=== PATIENT | female | born 1965 | race Caucasian/White ===

== ENCOUNTER → 2020-12-19 15:31 | Outpatient (CLI) | payer OTHER, MEDICARE, SELFPAY ==
[2020-12-19 16:04] LABS: Basophils % 0.6 % (0.1-2.0); Eosinophils # 0.1 K/mm3 (0.0-0.4); Eosinophils % 2.4 % (0.1-12.0); Hematocrit 38.1 % (37.0-47.0); Hemoglobin 12.5 g/dL (12.2-16.2); Lymphocytes # 1.5 K/mm3 (0.7-4.5); Mean Corpuscular HGB Conc 32.9 g/dL (31.8-35.4); Mean Corpuscular Hemoglobin 32.6 pg (27.0-31.2); Mean Corpuscular Volume 99.2 fl (81-99); Mean Platelet Volume 7.7 fl (7.4-10.4); Monocytes # 0.5 K/mm3 (0.1-1.0); Monocytes % 11.2 % (1.7-9.3); Neutrophils # 2.4 K/mm3 (1.8-7.8); Neutrophils % 52.9 % (37.0-80.0); Platelet Count 263 K/mm3 (142-424); Red Blood Count 3.84 M/mm3 (4.20-5.40); Red Cell Distribution Width 15.8 % (11.5-17.5); White Blood Count 4.5 K/mm3 (4.8-10.8)
[2020-12-19 16:24] LABS: Alanine Aminotransferase 19 U/L (12-78); Albumin/Globulin Ratio 1.5 (1.1-1.8); Alkaline Phosphatase 76 U/L (38-126); Anion Gap 9.2 mEq/L (5-15); Aspartate Amino Transferase 27 U/L (14-36); Bilirubin,Total 0.5 mg/dl (0.2-1.3); Blood Urea Nitrogen 8 mg/dl (7-17); Carbon Dioxide 28 mmol/L (22.0-30.0); Chloride 104 mmol/L (98-107); Estimated Glomerular Filt Rate 128 ml/min (>60); GFR (African American) 154 ML/MIN (>60); Globulin 2.7 g/dL (1.3-3.2); Glucose 100 mg/dl (74-100); Potassium 4.2 mmoL/L (3.5-5.1); Sodium 137 mmol/L (136-145); Total Protein,Serum 6.7 g/dl (6.3-8.2)
== END ==
DX: C18.9 Malignant neoplasm of colon, unspecified (principal)
CPT/HCPCS: 36415; 80053; 85025

== ENCOUNTER → 2021-01-02 17:39 | Outpatient (CLI) | payer OTHER, MEDICARE, SELFPAY ==
[2021-01-02 18:15] LABS: Basophils % 0.5 % (0.1-2.0); Eosinophils # 0.1 K/mm3 (0.0-0.4); Eosinophils % 2.3 % (0.1-12.0); Hematocrit 36.6 % (37.0-47.0); Hemoglobin 12.4 g/dL (12.2-16.2); Lymphocytes # 1.2 K/mm3 (0.7-4.5); Mean Corpuscular Hemoglobin 32.6 pg (27.0-31.2); Mean Platelet Volume 8.1 fl (7.4-10.4); Monocytes # 0.2 K/mm3 (0.1-1.0); Monocytes % 5.6 % (1.7-9.3); Neutrophils # 1.8 K/mm3 (1.8-7.8); Neutrophils % 55.6 % (37.0-80.0); Platelet Count 193 K/mm3 (142-424); Red Blood Count 3.82 M/mm3 (4.20-5.40); Red Cell Distribution Width 15.4 % (11.5-17.5); White Blood Count 3.2 K/mm3 (4.8-10.8)
[2021-01-02 18:47] LABS: Hemoglobin A1C 5.3 % (4.0-6.0)
[2021-01-02 19:40] LABS: Alanine Aminotransferase 25 U/L (12-78); Albumin Level 4.3 g/dl (3.5-5.0); Albumin/Globulin Ratio 1.6 (1.1-1.8); Alkaline Phosphatase 80 U/L (38-126); Anion Gap 10.6 mEq/L (5-15); Aspartate Amino Transferase 33 U/L (14-36); Bilirubin,Total 0.7 mg/dl (0.2-1.3); Blood Urea Nitrogen 11 mg/dl (7-17); Carbon Dioxide 26 mmol/L (22.0-30.0); Chloride 104 mmol/L (98-107); Estimated Glomerular Filt Rate 128 ml/min (>60); GFR (African American) 154 ML/MIN (>60); Globulin 2.7 g/dL (1.3-3.2); Potassium 4.6 mmoL/L (3.5-5.1); Sodium 136 mmol/L (136-145)
[2021-01-02 20:09] LABS: Thyroid Stimulating Hormone 0.88 uIU/mL (0.465-4.68)
[2021-01-02 20:13] LABS: Calcium 9.3 mg/dl (8.4-10.2); Glucose 91 mg/dl (74-100)
[2021-01-02 20:27] LABS: Vitamin B12 406 pg/mL (239-931)
== END ==
PROVIDERS: Visit Provider Internal Medicine Adolescent Medicine
DX: G62.0 Drug-induced polyneuropathy (principal); T45.1X5A Adverse effect of antineoplastic and immunosuppressive drugs, initial encounter
CPT/HCPCS: 36415; 80053; 82607; 83036; 84443; 85025

== ENCOUNTER 2021-04-19 14:59 | Emergency (ER) | payer MEDICARE, SELFPAY ==
--- NOTE | 2021-04-19 14:50 | ECG_ITS ---
APPROVED REPORT Exam: Resting ECG HR:87 bpm ECG Measurements Heart Rate 87 AXES WI 142 P 38 QRSd 56 QRS 16 QT 346 T 23 QTc 416 Conclusion Normal sinus rhythm Low voltage QRS Cannot rule out Anterior infarct, age undetermined Abnormal ECG Electronically signed by : Liban Petit MD 04/21/2021 10:55:39
[2021-04-19 14:59] VITALS: BP 138/92; PULSE 89; RESP 18; TEMP 36.8; O2SAT 98; BMI 43.9
--- NOTE | 2021-04-19 15:01 | HMH.EDEXTP ---
ED Disposition Clinical Impression: DVT of upper extremity (deep vein thrombosis) Qualifiers: Affected thrombotic vein of extremity: brachial Chronicity: acute Laterality: right Qualified Code(s): I82.621 - Acute embolism and thrombosis of deep veins of right upper extremity Disposition: Home, Self-Care Condition on Discharge: Fair Additional Instructions: You may take [id number] acetaminophen for your pain. Please follow-up with your primary care doctor by Saturday if your symptoms do not improve. Return to the emergency department if you feel worse or short of breath or develop persistent chest pain. Prescriptions: Ketorolac Tromethamine [Toradol 10mg tablet] 10 mg PO Q6HP PRN #8 tab MDD 40mg/day PRN Reason: Arm pain Transmission Status: Sent to [facility] Apixaban [Eliquis 5mg tab] 5 mg PO BID #60 tab Transmission Status: Sent to [facility] Referrals: Liban Petit MD [Primary Care Provider] - - Critical Care Critical Care Time: No Attestation: On , the high probability of a clinically significant, sudden or life threatening deterioration of the following system(s) required my full and direct attention, intervention and personal management. The time I documented below is in addition to time spent performing reported procedures but includes the following listed in this critical care notation. Medical Decision Making - Medical Records Medical records reviewed: Yes: I reviewed the patient's medical records. - Nilo Inquiry Pt receiving controlled substance: No Vital Signs: 04/19/21 14:59 04/19/21 15:30 04/19/21 16:00 Temperature 98.3 F Temperature Source Oral Pulse Rate 81 86 Pulse Rate [Left Radial] 89 Respiratory Rate 18 Blood Pressure [Right Arm] 138/92 H Blood Pressure Mean [Right Arm] 107 Blood Pressure Source [Right Arm] Automatic Cuff Blood Pressure Position [Right Arm] Sitting 02 Sat by Pulse Oximetry 98 96 98 Oxygen Delivery Method Room Air - Lab Data Lab Results 04/19/21 15:00: WBC 6.2, RBC 4.16 L, Hgb 13.3, Hct 40.6, MCV 97.7, MCH 32.0 H, MCHC 32.7, RDW 13.9, Plt Count 225, MPV 8.2, Neut % (Auto) 66.3, Lymph % (Auto) 23.0, [place] % (Auto) 7.1, Eos % (Auto) 2.6, Baso % (Auto) 1.0, Neut # (Auto) 4.1, Lymph # (Auto) 1.4, [place] # (Auto) 0.4, Eos # (Auto) 0.2, Baso # (Auto) 0.1 04/19/21 15:00: Sodium 138, Potassium 4.5, Chloride 102, Carbon Dioxide 27, Anion Gap 13.5, BUN 14, Creatinine 0.60, Estimated Creat Clear 87, Estimated GFR 103, Est GFR ( Amer) 125, Glucose 102 H, Calcium 9.8, Total Bilirubin 0.2, AST 30, ALT 21, Alkaline Phosphatase 84, Total Protein 7.8, Albumin 4.4, Globulin 3.4 H, Albumin/Globulin Ratio 1.3 04/19/21 15:05: PT 10.8, INR 0.91, APTT 23.2 Result diagrams: 04/19/21 15:00 04/19/21 15:00 Orders (Tests/Meds): ED MEDICATIONS Generic Name Dose Route Start Last Admin Trade Name Freq PRN Reason Stop Dose Admin Apixaban 5 mg 04/19/21 21:00 Apixaban 5mg Tablet PO 05/19/21 20:59 BID DEB Discontinued Medications Generic Name Dose Route Start Last Admin Trade Name Freq PRN Reason Stop Dose Admin Ketorolac Tromethamine 30 mg 04/19/21 15:06 04/19/21 15:10 Ketorolac 30mg/Ml Vial IV 04/19/21 15:07 30 mg ONCE ONE Administration - ECG Data Tracing #1 I reviewed this ECG and interpreted as documented below: The patient's EKG was done at 1451. It shows a normal sinus rhythm with a rate of 87 bpm artifact present there are Q waves in lead III. Otherwise the EKG is unremarkable without any evidence of ischemia or dysrhythmia. Normal Sinus Rhythm: Yes Medical Decision Narrative: The patient presents to the emergency department complaining of right upper extremity pain since this morning. Her physical exam and history prompted me to obtain a venous Doppler study to rule out DVT. The appliance repair technician just informed me that the patient does have a clot in the brachial vein. It is c
--- NOTE | 2021-04-19 15:06 | CA_ITS ---
APPROVED REPORT Right Upper Extremity Venous Study for DVT. Operating Room Tech: DEEPA Beyer Upper Extremity Pain: Right Patient reports pain that began last night 04/18/21. Patient has a port on the right for Colon Cancer. Vein Imaging IJV (R): Normal phasic flow is seen. Normal flow, augmentation and compression is seen. No evidence of Deep Vein Thrombosis. No abnormalities are demonstrated. SCV (R): Normal phasic flow is seen. Normal flow, augmentation and compression is seen. No evidence of Deep Vein Thrombosis. No abnormalities are demonstrated. Axillary (R): Normal phasic flow is seen. Normal flow, augmentation and compression is seen. No evidence of Deep Vein Thrombosis. No abnormalities are demonstrated. Brachial (R): Thrombus Basilic (R): Normal phasic flow is seen. Normal flow, augmentation and compression is seen. No evidence of Deep Vein Thrombosis. No abnormalities are demonstrated. Cephalic (R): Normal phasic flow is seen. Normal flow, augmentation and compression is seen. No evidence of Deep Vein Thrombosis. No abnormalities are demonstrated. Radial (R): Normal phasic flow is seen. Normal flow, augmentation and compression is seen. No evidence of Deep Vein Thrombosis. No abnormalities are demonstrated. Ulnar (R): Normal phasic flow is seen. Normal flow, augmentation and compression is seen. No evidence of Deep Vein Thrombosis. No abnormalities are demonstrated. Findings No evidence of intraluminal venous thrombosis Conclusion No evidence of intraluminal venous thrombosis Critical Notification Physician Notified Date: 04/19/2021 Time: 15:57 Physician Name: Destiny Electronically signed by : Facundo Dejesus MD 04/21/2021 16:53:38
[2021-04-19 15:29] LABS: Activated Partial Thrombo Time 23.2 seconds (22.8-30.6); Prothrombin Time 10.8 seconds (10.1-12.5)
[2021-04-19 15:30] VITALS: PULSE 81; O2SAT 96
[2021-04-19 15:30] LABS: INR 0.91 (0.9-1.1)
[2021-04-19 15:50] LABS: Chloride 102 mmol/L (98-107); Potassium 4.5 mmoL/L (3.5-5.1); Sodium 138 mmol/L (136-145)
[2021-04-19 15:53] LABS: Alanine Aminotransferase 21 U/L (12-78); Albumin Level 4.4 g/dl (3.5-5.0); Albumin/Globulin Ratio 1.3 (1.1-1.8); Alkaline Phosphatase 84 U/L (38-126); Anion Gap 13.5 mEq/L (5-15); Aspartate Amino Transferase 30 U/L (14-36); Bilirubin,Total 0.2 mg/dl (0.2-1.3); Blood Urea Nitrogen 14 mg/dl (7-17); Carbon Dioxide 27 mmol/L (22.0-30.0); Creatinine Clearance Estimated 87 mL/min (50-200); Estimated Glomerular Filt Rate 103 ml/min (>60); GFR (African American) 125 ML/MIN (>60); Globulin 3.4 g/dL (1.3-3.2); Total Protein,Serum 7.8 g/dl (6.3-8.2)
[2021-04-19 15:54] LABS: Basophils # 0.1 K/mm3 (0-0.2); Calcium 9.8 mg/dl (8.4-10.2); Eosinophils # 0.2 K/mm3 (0.0-0.4); Eosinophils % 2.6 % (0.1-12.0); Glucose 102 mg/dl (74-100); Hematocrit 40.6 % (37.0-47.0); Hemoglobin 13.3 g/dL (12.2-16.2); Lymphocytes # 1.4 K/mm3 (0.7-4.5); Mean Corpuscular HGB Conc 32.7 g/dL (31.8-35.4); Mean Corpuscular Volume 97.7 fl (81-99); Mean Platelet Volume 8.2 fl (7.4-10.4); Monocytes # 0.4 K/mm3 (0.1-1.0); Monocytes % 7.1 % (1.7-9.3); Neutrophils # 4.1 K/mm3 (1.8-7.8); Neutrophils % 66.3 % (37.0-80.0); Platelet Count 225 K/mm3 (142-424); Red Blood Count 4.16 M/mm3 (4.20-5.40); Red Cell Distribution Width 13.9 % (11.5-17.5); White Blood Count 6.2 K/mm3 (4.8-10.8)
[2021-04-19 16:00] VITALS: PULSE 86; O2SAT 98
[2021-04-19 16:12] VITALS: BP 142/82; PULSE 80; O2SAT 97
[2021-04-19 16:31] VITALS: BP 147/84; PULSE 80; O2SAT 97
[2021-04-19 16:52] VITALS: BP 147/84; PULSE 80; RESP 18; TEMP 36.8; O2SAT 97
== END 2021-04-19 16:59 | disposition home or self-care (01) ==
PROVIDERS: Emergency Provider Emergency Medicine; PCP Internal Medicine Adolescent Medicine
DX: I82.621 Acute embolism and thrombosis of deep veins of right upper extremity (principal); Z85.038 Personal history of other malignant neoplasm of large intestine; Z88.1 Allergy status to other antibiotic agents; Z88.2 Allergy status to sulfonamides
CPT/HCPCS: 80053; 85025; 85610; 85730; 93005; 93971; 96374; 99282

== ENCOUNTER 2021-06-03 11:56 | Emergency (ER) | payer MEDICARE, SELFPAY ==
[2021-06-03 11:58] VITALS: BP 143/83; PULSE 99; RESP 16; TEMP 36.9; O2SAT 97; BMI 44.2
--- NOTE | 2021-06-03 12:22 | HMH.EDGENADL ---
ED Disposition Clinical Impression: Right shoulder pain Qualifiers: Chronicity: acute Qualified Code(s): M25.511 - Pain in right shoulder Disposition: Home, Self-Care Condition on Discharge: Fair Additional Instructions: [place] as needed for pain. Follow-up with your primary care provider on Saturday for further care. Additional instructions for CONTROLLED SUBSTANCES: You have been prescribed a medication that is a controlled substance. Controlled substances include pain medications known as opiates and sedative nerve medications known as benzodiazepines. Tramadol, fioricet, and gabapentin are also controlled substances. Some common opiates include: Codeine (such as Tylenol #3) Hydrocodone (Vicodin, Lortab, Lorcet, [place]) Oxycodone (Percocet, Percodan, Oxycodone, Oxy IR) Some common benzodiazepines include: Diazepam (Valium) Lorazepam (Ativan) Alprazolam (Xanax) Clonazepam (Klonopin) Oxazepam (Serax) All of these controlled substances are highly addictive and frequently abused. Misuse can and frequently does lead to addiction as well as overdose and . Medication should be stored in a locked cabinet or other secure storage unit. Do not store the medication in a motor vehicle. Short term supplies, 3 days or less, are prescribed because of the highly addictive nature of the medication. Any of the controlled substance medication NOT taken should be disposed of properly and NOT SAVED. The recommended method of disposing of unused medications is: Place the medicines in a sealable plastic bag. If the medicine is a solid, crush it or add water to dissolve it. Add something undesirable (cat litter, coffee grounds, etc.) Dispose of sealed bag in household trash Do not flush or pour unused medicines down a sink or drain. Controlled substances should not be shared, given away or sold. Because of the addictive nature and frequent abuse, these medications are sometimes stolen. These medications should be kept in a safe place where they cannot be stolen. Do not keep them in your car or purse. Lost or stolen prescriptions for controlled substances WILL NOT BE REFILLED in this emergency department, regardless of whether a police report was filed. Prescriptions: Hydrocod/Acet 5/325 mg [[place] 5/325mg tablet] 1 tab PO Q6HP PRN #10 tab PRN Reason: Pain Transmission Status: Sent to [facility] #[id number] Referrals: Liban Petit MD [Primary Care Provider] - - Critical Care Critical Care Time: No Attestation: On , the high probability of a clinically significant, sudden or life threatening deterioration of the following system(s) required my full and direct attention, intervention and personal management. The time I documented below is in addition to time spent performing reported procedures but includes the following listed in this critical care notation. Medical Decision Making - Medical Records Medical records reviewed: Yes: I reviewed the patient's medical records. MR Comment: Reviewed prior emergency department note and Doppler result from 04/21/21, see doppler report below - Nilo Inquiry Pt receiving controlled substance: Yes Nilo was queried for this patient: Yes Risks and benefits of using a controlled substance: were discussed with pt by me Vital Signs: 06/03/21 11:58 06/03/21 15:00 Temperature 98.4 F Temperature Source Oral Pulse Rate 90 Pulse Rate [Left Radial] 99 H Respiratory Rate 16 24 Blood Pressure 139/85 Blood Pressure [Left Arm] 143/83 H Blood Pressure Mean [Left Arm] 103 Blood Pressure Source [Left Arm] Automatic Cuff Blood Pressure Position [Left Arm] Sitting 02 Sat by Pulse Oximetry 97 100 Oxygen Delivery Method Room Air - Lab Data Lab Results 06/03/21 12:29: WBC 4.7 L, RBC 4.21, Hgb 12.9, Hct 41.4, MCV 98.2, MCH 30.6, MCHC 31.2 L, RDW 13.4, Plt Count 233, MPV 7.9, Neut % (Auto) 67.5, Lymph % (Auto) 20.8, [place] % (Auto) 6.7, Eos % (Auto) 4.1,
--- NOTE | 2021-06-03 12:32 | CA_ITS ---
APPROVED REPORT Right Upper Extremity Venous Study for DVT. Video And Sound Recorder: [address] Indications Upper Extremity Pain: Right Patient had a previous DVT of the right arm 2 months ago and is still currently taking Eloquis Risk Factors Prior Phlebitis/DVT Vein Imaging IJV (R): Normal phasic flow is seen. Normal flow, augmentation and compression is seen. No evidence of Deep Vein Thrombosis. No abnormalities are demonstrated. SCV (R): Normal phasic flow is seen. Normal flow, augmentation and compression is seen. No evidence of Deep Vein Thrombosis. No abno, Phasicrmalities are demonstrated., Axillary (R): Normal phasic flow is seen. Normal flow, augmentation and compression is seen. No evidence of Deep Vein Thrombosis. No abnormalities are demonstrated. Brachial (R): Normal phasic flow is seen. Normal flow, augmentation and compression is seen. No evidence of Deep Vein Thrombosis. No abnormalities are demonstrated. Basilic (R): Normal phasic flow is seen. Normal flow, augmentation and compression is seen. No evidence of Deep Vein Thrombosis. No abnormalities are demonstrated. Cephalic (R): Normal phasic flow is seen. Normal flow, augmentation and compression is seen. No evidence of Deep Vein Thrombosis. No abnormalities are demonstrated. Radial (R): Normal phasic flow is seen. Normal flow, augmentation and compression is seen. No evidence of Deep Vein Thrombosis. No abnormalities are demonstrated. Ulnar (R): Normal phasic flow is seen. Normal flow, augmentation and compression is seen. No evidence of Deep Vein Thrombosis. No abnormalities are demonstrated. Findings Study suggests no evidence of DVT or SVT of the right upper extremity. Conclusion Study suggests no evidence of DVT or SVT of the right upper extremity. Critical Notification Critical Value: No Physician Notified Date: 06/03/2021 Time: 14:34 Physician Name: ER nurse Electronically signed by : Wendie Griggs MD 06/06/2021 15:27:05
--- NOTE | 2021-06-03 12:32 | XR_ITS ---
PROCEDURE INFORMATION: Exam: XR Right Shoulder Exam date and time: 06/03/2021 12:32 PM Age: 55 years old Clinical indication: Pain; Shoulder; Right; Additional info: Pain right shoulder pain, some pain in pec-- patient has colon and rectal cancer and a port -- she had previous blood clot and is currently on blood thinner TECHNIQUE: Imaging protocol: XR Right shoulder. Views: 2 or more views. COMPARISON: CA VENOUS DOPPLER UE RT 04/19/2021 3:18 PM FINDINGS: Tubes, catheters and devices: MediPort terminates in the superior vena cava Bones/joints: Mild Degenerative changes in the acromioclavicular joint and glenohumeral joint. There is no evidence of acute fracture.There is no evidence of malalignment or dislocation. Soft tissues: Normal. IMPRESSION: There is no evidence of acute fracture.There is no evidence of malalignment or dislocation.
--- NOTE | 2021-06-03 12:33 | XR_ITS ---
PROCEDURE INFORMATION: Exam: XR Chest Exam date and time: 06/03/2021 12:33 PM Age: 55 years old Clinical indication: Pain; Chest pressure; Additional info: Right shoulder pain, some pain in pec-- patient has colon and rectal cancer and a port -- she had previous blood clot and is currently on blood thinner TECHNIQUE: Imaging protocol: XR of the chest. Views: 2 views. COMPARISON: No relevant prior studies available. FINDINGS: Tubes, catheters and devices: MediPort terminates in the superior vena cava Lungs: 3.7 cm mass in the left lung base and projected over the spine on the lateral. This may represent metastatic disease. Consider chest CT Pleural spaces: Unremarkable. No pleural effusion. No pneumothorax. Heart/Mediastinum: Unremarkable. No cardiomegaly. Bones/joints: Unremarkable. IMPRESSION: 3.7 cm mass in the left lung base and projected over the spine on the lateral. This may represent metastatic disease. Consider chest CT
--- NOTE | 2021-06-03 12:36 | ECG_ITS ---
APPROVED REPORT Exam: Resting ECG HR:87 bpm ECG Measurements Heart Rate [address] 148 P 53 QRSd 74 QRS 28 QT 356 T 45 QTc 428 Conclusion Normal sinus rhythm Low voltage QRS Borderline ECG Electronically signed by : Liban Petit MD 06/04/2021 08:47:07
[2021-06-03 12:40] LABS: Basophils % 0.9 % (0.1-2.0); Eosinophils # 0.2 K/mm3 (0.0-0.4); Eosinophils % 4.1 % (0.1-12.0); Hematocrit 41.4 % (37.0-47.0); Hemoglobin 12.9 g/dL (12.2-16.2); Lymphocytes % 20.8 % (10-50); Mean Corpuscular HGB Conc 31.2 g/dL (31.8-35.4); Mean Corpuscular Hemoglobin 30.6 pg (27.0-31.2); Mean Corpuscular Volume 98.2 fl (81-99); Mean Platelet Volume 7.9 fl (7.4-10.4); Monocytes # 0.3 K/mm3 (0.1-1.0); Monocytes % 6.7 % (1.7-9.3); Neutrophils # 3.2 K/mm3 (1.8-7.8); Neutrophils % 67.5 % (37.0-80.0); Platelet Count 233 K/mm3 (142-424); Red Blood Count 4.21 M/mm3 (4.20-5.40); Red Cell Distribution Width 13.4 % (11.5-17.5); White Blood Count 4.7 K/mm3 (4.8-10.8)
[2021-06-03 12:45] LABS: Chloride 104 mmol/L (98-107); Potassium 4.4 mmoL/L (3.5-5.1); Sodium 139 mmol/L (136-145)
[2021-06-03 12:48] LABS: Blood Urea Nitrogen 9 mg/dl (7-17); Creatinine Clearance Estimated 104 mL/min (50-200); Estimated Glomerular Filt Rate 128 ml/min (>60); GFR (African American) 154 ML/MIN (>60)
[2021-06-03 12:49] LABS: Anion Gap 13.4 mEq/L (5-15); Calcium 9.5 mg/dl (8.4-10.2); Carbon Dioxide 26 mmol/L (22.0-30.0); Glucose 125 mg/dl (74-100)
[2021-06-03 13:02] LABS: Troponin I < 0.01 ng/ml (0.00-0.034)
[2021-06-03 15:00] VITALS: BP 139/85; PULSE 90; RESP 24; O2SAT 100
[2021-06-03 15:28] VITALS: BP 142/86; PULSE 81; O2SAT 97
[2021-06-03 15:30] VITALS: BP 139/81; PULSE 84; O2SAT 98
--- NOTE | 2021-06-03 15:35 | PC.NURSE ---
Debo from ultrasound called. Ultrasound was negative.
[2021-06-03 16:00] VITALS: BP 136/83; PULSE 81; RESP 17; O2SAT 95
[2021-06-03 16:10] VITALS: BP 133/88; PULSE 89; RESP 18; TEMP 36.6; O2SAT 98
== END 2021-06-03 16:12 | disposition home or self-care (01) ==
PROVIDERS: Emergency Provider Emergency Medicine; PCP Internal Medicine Adolescent Medicine
DX: M25.511 Pain in right shoulder (principal); Z86.72 Personal history of thrombophlebitis; Z79.01 Long term (current) use of anticoagulants
CPT/HCPCS: 71046; 73030; 80048; 84484; 85025; 93005; 93971; 99283

== ENCOUNTER 2021-07-07 22:27 | Emergency (ER) | payer MEDICARE, SELFPAY ==
[2021-07-07 22:28] VITALS: BP 146/100; PULSE 95; RESP 18; TEMP 36.8; O2SAT 97; BMI 46.0
[2021-07-07 23:07] LABS: Basophils # 0.1 K/mm3 (0-0.2); Eosinophils # 0.2 K/mm3 (0.0-0.4); Eosinophils % 3.4 % (0.1-12.0); Hematocrit 37.6 % (37.0-47.0); Hemoglobin 12.8 g/dL (12.2-16.2); Mean Corpuscular HGB Conc 34.1 g/dL (31.8-35.4); Mean Corpuscular Hemoglobin 31.3 pg (27.0-31.2); Mean Corpuscular Volume 91.6 fl (81-99); Mean Platelet Volume 7.8 fl (7.4-10.4); Monocytes # 0.4 K/mm3 (0.1-1.0); Monocytes % 7.9 % (1.7-9.3); Neutrophils # 3.6 K/mm3 (1.8-7.8); Neutrophils % 68.7 % (37.0-80.0); Platelet Count 208 K/mm3 (142-424); Red Cell Distribution Width 13.4 % (11.5-17.5); White Blood Count 5.2 K/mm3 (4.8-10.8)
--- NOTE | 2021-07-07 23:12 | HMH.EDGENADL ---
ED Disposition Clinical Impression: Superficial venous thrombosis of right arm Disposition: Home, Self-Care Condition on Discharge: Good Instructions: DI for Superficial Thrombophlebitis Additional Instructions: call pcp in am and will do doppler in am Referrals: Liban Petit MD [Primary Care Provider] - - Critical Care Critical Care Time: No Attestation: On 07/07/21, the high probability of a clinically significant, sudden or life threatening deterioration of the following system(s) required my full and direct attention, intervention and personal management. The time I documented below is in addition to time spent performing reported procedures but includes the following listed in this critical care notation. Medical Decision Making - Medical Records Medical records reviewed: Yes: I reviewed the patient's medical records. - Nilo Inquiry Pt receiving controlled substance: No Vital Signs: 07/07/21 22:28 07/07/21 23:37 Temperature 98.2 F 98.3 F Temperature Source Oral Oral Pulse Rate 65 Pulse Rate [Left] 95 H Respiratory Rate 18 18 Blood Pressure 155/90 H Blood Pressure [Right Arm] 146/100 H Blood Pressure Mean [Right Arm] 115 02 Sat by Pulse Oximetry 97 Oxygen Delivery Method Room Air - Lab Data Lab results reviewed: Yes: I reviewed the patient's lab results. Lab Results 07/07/21 23:00: WBC 5.2, RBC 4.10 L, Hgb 12.8, Hct 37.6, MCV 91.6, MCH 31.3 H, MCHC 34.1, RDW 13.4, Plt Count 208, MPV 7.8, Neut % (Auto) 68.7, Lymph % (Auto) 19.0, [place] % (Auto) 7.9, Eos % (Auto) 3.4, Baso % (Auto) 1.0, Neut # (Auto) 3.6, Lymph # (Auto) 1.0, [place] # (Auto) 0.4, Eos # (Auto) 0.2, Baso # (Auto) 0.1, ESR 57 H 07/07/21 23:00: Sodium 138, Potassium 4.2, Chloride 104, Carbon Dioxide 28, Anion Gap 10.2, BUN 12, Creatinine 0.60, Estimated Creat Clear 87, Estimated GFR 103, Est GFR ( Amer) 125, Glucose 135 H, Calcium 9.0, Total Bilirubin 0.3, AST 25, ALT 12, Alkaline Phosphatase 84, C-Reactive Protein 7.4 H, Total Protein 6.9, Albumin 4.1, Globulin 2.8, Albumin/Globulin Ratio 1.5 Result diagrams: 07/07/21 23:00 07/07/21 23:00 Orders (Tests/Meds): ED MEDICATIONS Discontinued Medications Generic Name Dose Route Start Last Admin Trade Name Kathy PRN Reason Stop Dose Admin Acetaminophen/Codeine Phosphate 1 sampson 07/07/21 23:24 07/07/21 23:26 Acetaminophen 300mg W/Codeine 30mg Take Home Pack (6) PO 07/07/21 23:25 1 sampson ONCE ONE Administration Ketorolac Tromethamine 60 mg 07/07/21 23:24 07/07/21 23:26 Ketorolac 60mg/2ml Vial IM 07/07/21 23:25 60 mg ONCE ONE Administration ORDERS Category Date Time Status C-Reactive Protein Stat Lab 07/07/21 23:00 Results Comprehensive Metabolic Panel Stat Lab 07/07/21 23:00 Results Procalcitonin Stat Lab 07/07/21 23:00 Results Medical Decision Narrative: uncertain as to whether has dvt and will do doppler in am and has possible svt -on eliquis and compliant General Adult HPI - General Chief complaint: PAIN Stated complaint: Possible blood clot in R Arm Time Seen by Provider: 07/07/21 23:12 Mode of Arrival: Ambulatory Source of Information: Patient, Medical Record Limitations: No Limitations Description of Symptoms (Recalled from ER Triage Doc. by RN): pt c/o LUE pain x 2 days. pt has history of blood clots in this arm. - History of Present Illness HPI narrative: hx of lt upper ext dvt and svt - has increased pain - on anticoagulation -pt had discussed with [place] and was going to give nsaif -prev doppler was neg but prel report was positive - pain lt upper ext - has port and colon cancer Onset (ago): day(s) Location: upper extremity Severity: moderate Consistency: constant Associated symptoms: denies other symptoms Treatments prior to arrival: none - Related Data Home Medications Medication Instructions Recorded Confirmed Apixaban [Eliquis 5mg tab] 5 mg PO BID 07/07/21 07/07/21 Escitalopram Oxalate 20 mg PO
[2021-07-07 23:16] LABS: Alanine Aminotransferase 12 U/L (12-78); Albumin Level 4.1 g/dl (3.5-5.0); Albumin/Globulin Ratio 1.5 (1.1-1.8); Alkaline Phosphatase 84 U/L (38-126); Anion Gap 10.2 mEq/L (5-15); Aspartate Amino Transferase 25 U/L (14-36); Bilirubin,Total 0.3 mg/dl (0.2-1.3); Blood Urea Nitrogen 12 mg/dl (7-17); Carbon Dioxide 28 mmol/L (22.0-30.0); Chloride 104 mmol/L (98-107); Creatinine Clearance Estimated 87 mL/min (50-200); Estimated Glomerular Filt Rate 103 ml/min (>60); GFR (African American) 125 ML/MIN (>60); Globulin 2.8 g/dL (1.3-3.2); Glucose 135 mg/dl (74-100); Potassium 4.2 mmoL/L (3.5-5.1); Sodium 138 mmol/L (136-145); Total Protein,Serum 6.9 g/dl (6.3-8.2)
[2021-07-07 23:21] LABS: C-Reactive Protein 7.4 mg/L (0-4)
[2021-07-07 23:31] LABS: Erythrocyte Sedimentation Rate 57 mm/hr (0-30)
[2021-07-07 23:35] LABS: Procalcitonin 0.048 ng/mL (0.0-2.0)
[2021-07-07 23:37] VITALS: BP 155/90; PULSE 65; RESP 18; TEMP 36.8; O2SAT 95
== END 2021-07-08 00:24 | disposition home or self-care (01) ==
PROVIDERS: Emergency Provider Emergency Medicine; PCP Internal Medicine Adolescent Medicine
DX: I82.611 Acute embolism and thrombosis of superficial veins of right upper extremity (principal)
CPT/HCPCS: 80053; 84145; 85025; 85651; 86140; 96372; 99282